=== PATIENT | female | born 1960 | race Caucasian/White ===

== ENCOUNTER 2019-12-22 15:30 | Emergency (ER) | payer OTHER, SELFPAY ==
--- NOTE | ~2019-12-22 | XR_ITS ---
EXAMINATION: XR shoulder LT min 2V INDICATION: Left shoulder pain TECHNIQUE: Three views of the left shoulder are obtained. COMPARISON: 01/24/2017 FINDINGS: There is an acute traumatic fracture of the left mid clavicle. The distal fracture fragment is inferiorly displaced and overriding by 2.1 cm. There is also a a chronic fracture of the distal c lavicle with nonunion. Alignment at the acromioclavicular and glenohumeral joints appears normal. IMPRESSION: 1. Acute overriding and displaced fracture of the left mid clavicle. 2. 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 Reviewed, dictated and finalized at location A.
[2019-12-22 15:46] VITALS: BP 124/71; PULSE 76; RESP 16; TEMP 36.6; O2SAT 96
--- NOTE | 2019-12-22 15:53 | ED.GENADULT ---
HPI - General Adult General Chief complaint: Extremity Injury, Upper Stated complaint: fall hit head left shoulder pain Time Seen by Provider: 12/22/19 15:53 Source: patient and RN notes reviewed Mode of arrival: ambulatory Limitations: no limitations History of Present Illness HPI narrative: 59-year-old female presents with complaints of left shoulder pain and swelling for approximately 1 hour ago. Jeane says she was pushing a flower cart down her driveway and hit a crack which flipped her over the cart and she landed on her LT side hitting her LT shoulder and side of head. She became loud and defensive when asked did she lose consciousness. She said I know I laid in my driveway and the neighbor says me and called my daughter. She continued to get loud and partially answering questions. She says she can recall the events. No treatment. Previous LT clavicle fracture. Denies numbness or tingling. Hurts with movement of shoulder. Denies radiating pain. No loss of mobility. Exacerbating factor is movement, palpation, and manipulation. Relieving factor is rest. The dominant hand is the RIGHT HAND. Remains active. Denies fever, chills, headaches, weakness, fatigue, myalgia. Denies chest pain or dyspnea. Denies cough, rhinorrhea, congestion, sore throat, nausea, vomiting, abdominal pain, and diarrhea. Tolerating po intake well. Denies recent traveling. Denies concerns for COVID-19 or exposures been home since [id number] order except for essential household needs and returned home. Some parts of this dictation were generated by voice recognition software and may contain typographical and/or grammatical inaccuracies. Related Data Home Medications Medication Instructions Recorded Confirmed alprazolam 12/22/19 Allergies Allergy/AdvReac Type Severity Reaction Status Date / Time No Known Allergies Allergy Unverified 09/02/19 12:47 Review of Systems Review of Systems: Narrative: CONSTITUTIONAL: Denies fever, chills, sweats. EYES: Denies visual changes, redness, discharge. ENT: Denies rhinorrhea, congestion, sore throat, otalgia. CARDIOVASCULAR: Denies chest pain, palpitations, edema. RESPIRATORY: Denies dyspnea, wheezing, cough. GASTROINTESTINAL: Denies abdominal pain, nausea, vomiting, diarrhea. GENITOURINARY: Denies dysuria, hematuria, abnormal discharge. SKIN: Denies rash or itching. MUSCULOSKELETAL: Denies acute back pain or myalgia. Complains of LT shoulder pain and swelling. NEUROLOGIC: Denies numbness or focal weakness. PSYCHIATRIC: Denies anxiety or depression. All other systems reviewed & are unremarkable except as noted in HPI and below. [facility] Past Medical History Medical History (Updated 12/22/19 @ 16:55 by JUAN Olson) History of broken collarbone Hypertension Menopause Surgical History Surgical History (Updated 12/22/19 @ 16:06 by JUAN Olson) History of hysterectomy Family History Family History Mother Family history of obesity Hypertension Family history of elevated blood lipids Family history of arthritis Family history of aortic aneurysm Father Patient's father is Family history of alcoholism Family history of malignant neoplasm of esophagus Social History Social History (Updated 12/22/19 @ 16:06 by JUAN Olson) Smoking packs per day: 1 Smoking cigarettes per day: 20.0 Years smoked: 60 Smoking pack-years: 60.00 Smoking status: Heavy tobacco smoker Second hand tobacco smoke exposure: Yes Alcohol intake: current Substance use: current Substance use type: marijuana Living arrangements: alone Gender identity (if verbalized by the patient): Female Comments At time of signature, agree with nurse past medical, surgical, social, and family history. There is no relevant family history pertinent to the presenting complaint. Jeane jay
== END 2019-12-22 17:13 | disposition home or self-care (01) ==
PROVIDERS: Emergency Provider Nurse Practitioner Family; PCP Internal Medicine
DX: S42.012A Anterior displaced fracture of sternal end of left clavicle, initial encounter for closed fracture (principal); S09.90XA Unspecified injury of head, initial encounter; I10 Essential (primary) hypertension; F17.210 Nicotine dependence, cigarettes, uncomplicated; W18.39XA Other fall on same level, initial encounter
CPT/HCPCS: 73030; 99204; G0463

== ENCOUNTER 2020-05-27 10:06 | Outpatient (CLI) | payer OTHER, SELFPAY ==
--- NOTE | ~2020-05-27 | CT_ITS ---
EXAMINATION: CT lung screening DATE: 05/27/2020 10:30 INDICATION: Personal history of tobacco dependence TECHNIQUE: Computed tomography (CT) of the chest was performed without intravenous contrast. The dose -length product was 86.27 mGy-cm. Automated exposure control and iterative reconstruction technique w ere employed. COMPARISON: CT dated 02/06/2019 FINDINGS: There is atherosclerosis of the aorta, great vessels and coronary arteries. Heart size is n ormal. Mildly elevated left diaphragm. No significant pleural or pericardial effusion. Stable 5 mm nodule in the right lower lobe, image 87. There is atelectasis/scarring of the left mid a nd lower lung. There are scattered groundglass opacities in the lower lobes. There is a 2 mm right up per lobe nodule. No new nodules or masses. IMPRESSION: 1. Lung-RADS category 2: Benign appearance or behavior. Continue annual screening with noncontrast lo w-dose chest CT in 12 months. 2: Patchy groundglass opacities predominantly affecting the lower lobes which may reflect atelectasi s, reactive airway disease or less likely developing pneumonia. Reviewed, dictated and finalized at location A. IMPRESSION: 1. Lung-RADS category 2: Benign appearance or behavior. Continue annual screeni ng with noncontrast low-dose chest CT in 12 months. 2: Patchy groundglass opacities predominantly affecting the lower lobes which may reflect atelectasis, reactive airway disease or less likely developing pneu monia.
--- NOTE | ~2020-05-27 | MM_ITS ---
EXAMINATION: MM screening demi BI w gavin HISTORY: Screening mammogram TECHNIQUE: Craniocaudal and mediolateral oblique 3-D tomosynthesis images were obtained and synthetic 2-D images were generated. CAD analysis was submitted and interpreted. COMPARISON: No prior mammogram is available for comparison at this institution. BREAST PARENCHYMAL COMPOSITION: There are scattered areas of fibroglandular density. FINDINGS: There is no evidence of suspicious mass, calcification, or architectural distortion to sugg est malignancy in either breast. There has been no suspicious interval change. IMPRESSION: 1. No mammographic evidence of malignancy. 2. Recommend routine screening mammography in one year. BI-RADS Category 1: Negative Reviewed, dictated and finalized at location A.
== END 2020-05-27 10:07 | disposition home or self-care (01) ==
PROVIDERS: PCP Internal Medicine; Visit Provider Internal Medicine
DX: Z12.2 Encounter for screening for malignant neoplasm of respiratory organs (principal); Z87.891 Personal history of nicotine dependence; Z12.31 Encounter for screening mammogram for malignant neoplasm of breast
CPT/HCPCS: 77063; 77067; G0297

== ENCOUNTER 2020-06-26 00:43 | Outpatient (CLI) | payer OTHER, SELFPAY ==
[2020-06-26 18:05] LABS: SARS-CoV-2 RNA PCR Negative
== END 2020-06-26 00:44 | disposition home or self-care (01) ==
LOC: ANHCOVIDDT 00:43
PROVIDERS: PCP Internal Medicine; Visit Provider Internal Medicine Gastroenterology
DX: Z01.812 Encounter for preprocedural laboratory examination (principal); Z20.828 Contact with and (suspected) exposure to other viral communicable diseases
CPT/HCPCS: 87635; C9803; U0003

== ENCOUNTER 2020-06-29 00:36 | Day surgery (SDC) | payer OTHER, SELFPAY ==
[2020-06-21 14:31] VITALS: BMI 25.6
[2020-06-29 10:29] VITALS: BP 114/66; PULSE 75; RESP 16; TEMP 37.1; O2SAT 94; BMI 25.0
[2020-06-29] MEDS: LACTATED RINGERS 1,000 ML 150 ML IV CONT (10:40)
--- NOTE | 2020-06-29 10:47 | WPDANESEPPF ---
Anes - Initial Pre Proc Eval Procedure: Operation Date: 06/29/20 11:45 Proposed Procedures p Screening Colonoscopy - Kris Scott MD Date/Time: 06/29/20 10:47 Surgeon: Kris Scott MD Pre Op Diagnosis: Neoplasm Screening Patient Data Age: 59 Gender: F Height: 5 ft 6 in Weight: 70.5 kg Last Vital Signs Temp 98.7 F 06/29/20 10:29 Pulse 75 06/29/20 10:29 Resp 16 06/29/20 10:29 BP 114/66 06/29/20 10:29 Pulse Ox 94 06/29/20 10:29 Allergies Allergy/AdvReac Type Severity Reaction Status Date / Time No Known Allergies Allergy Verified 06/29/20 10:28 Home Medications Medication Instructions Recorded Confirmed Type Bacillus coagulans 10 billion cell cell PO DAILY 07/23/19 12/25/19 History capsule,delayed release vitamin B complex 1 tablet PO DAILY 07/23/19 06/21/20 History alprazolam 0.25 mg tablet 0.25 mg PO DAILY PRN #30 tablet 04/27/20 06/21/20 Rx rosuvastatin 5 mg tablet 5 mg PO DAILY #90 tablet 05/05/20 06/21/20 Rx peg 3350-electrolytes 236 240 ml PO Q10M #4000 ml 05/25/20 06/21/20 Rx gram-22.74 gram-6.74 gram-5.86 gram solution lisinopril-hydrochlorothiazide 1 tablet PO DAILY 06/21/20 06/21/20 History Patient hx anesthesia problems: none Family hx anesthesia problems: none PMFSH Past Medical History Medical History (Updated 05/05/20 @ 09:32 by Franky Sanders MD) History of broken collarbone Hypertension Menopause Surgical History Surgical History History of hysterectomy Family History Family History Mother Family history of obesity Hypertension Family history of elevated blood lipids Family history of arthritis Family history of aortic aneurysm Father Patient's father is Family history of alcoholism Family history of malignant neoplasm of esophagus Mother Hypertension Father Family history of malignant neoplasm of esophagus Social History Social History Smoking packs per day: 1 Smoking cigarettes per day: 20.0 Years smoked: 60 Smoking pack-years: 60.00 Smoking status: Heavy tobacco smoker Tobacco type: cigarettes Second hand tobacco smoke exposure: Yes Alcohol intake: current Alcohol use details: rarely Substance use: current Substance use type: marijuana Other substance usage details: daily Living arrangements: alone Gender identity (if verbalized by the patient): Female Spiritual care concerns: No Anes - Eval Final PreProcedure Day of Procedure 06/29/20 10:47 Patient weight: normal Heart: regular rate and rhythm Lungs: clear to auscultation Airway: Mallampati scale class II Neurological: alert and oriented Last oral intake: >/= 8 hours ASA classification: III Emergent: no Anesthetic plan: proceed Anesthesia type and monitoring: general GIVS and standard monitoring Informed Consent: The patient's anesthetic plan and its attendant risks and benefits were discussed with the patient/family/POA. Questions were solicited and answers provided to the satisfaction of the patient/family/POA.
--- NOTE | 2020-06-29 10:49 | PM.HPGS ---
History of Present Illness History of Present Illness Consent: Risks, benefits, and alternatives have been discussed and questions answered. Patient agrees to proceed with procedure. Chief complaint: Neoplasm Screening Narrative: Jeane Muñiz is a 59 year old female here for first screening colonoscopy, no gi issues. Review of Systems Constitutional: Constitutional: Denies headache(s) and Denies weakness Eyes: Eyes: Denies blurry vision ENT: Reports Normal hearing present, Denies headache(s) and Denies neck pain Cardiovascular: Cardiovascular: Denies chest pain and Denies dyspnea Respiratory: Respiratory: Denies dyspnea Gastrointestinal: Gastrointestinal: Reports no additional gastrointestinal complaints Genitourinary: Genitourinary: Denies dysuria Musculoskeletal: Musculoskeletal: Denies neck pain Integumentary/Breasts: Skin/Breast: Denies dry skin Neurologic: Reports Normal hearing present, Denies headache(s) and Denies weakness Psychiatric: Psychiatric: Denies anxiety Endocrine: Endocrine: Denies change in body appearance Hematologic/Lymphatic: Hematologic/Lymphatic: Denies easy bleeding Allergic/Immunologic: Allergic/Immunologic: Denies urticaria PMFSH Past Medical History Medical History (Updated 05/05/20 @ 09:32 by Franky Snaders MD) History of broken collarbone Hypertension Menopause Surgical History Surgical History History of hysterectomy Family History Family History Mother Family history of obesity Hypertension Family history of elevated blood lipids Family history of arthritis Family history of aortic aneurysm Father Patient's father is Family history of alcoholism Family history of malignant neoplasm of esophagus Mother Hypertension Father Family history of malignant neoplasm of esophagus Social History Social History Smoking packs per day: 1 Smoking cigarettes per day: 20.0 Years smoked: 60 Smoking pack-years: 60.00 Smoking status: Heavy tobacco smoker Tobacco type: cigarettes Second hand tobacco smoke exposure: Yes Alcohol intake: current Alcohol use details: rarely Substance use: current Substance use type: marijuana Other substance usage details: daily Living arrangements: alone Gender identity (if verbalized by the patient): Female Spiritual care concerns: No Meds Home Medications and Allergies Home Medications Medication Instructions Recorded Confirmed Type Bacillus coagulans 10 billion cell cell PO DAILY 07/23/19 12/25/19 History capsule,delayed release vitamin B complex 1 tablet PO DAILY 07/23/19 06/21/20 History alprazolam 0.25 mg tablet 0.25 mg PO DAILY PRN #30 tablet 04/27/20 06/21/20 Rx rosuvastatin 5 mg tablet 5 mg PO DAILY #90 tablet 05/05/20 06/21/20 Rx peg 3350-electrolytes 236 240 ml PO Q10M #4000 ml 05/25/20 06/21/20 Rx gram-22.74 gram-6.74 gram-5.86 gram solution lisinopril-hydrochlorothiazide 1 tablet PO DAILY 06/21/20 06/21/20 History Allergies Allergy/AdvReac Type Severity Reaction Status Date / Time No Known Allergies Allergy Verified 06/29/20 10:28 Vital Signs Vital Signs - 24 hr 06/29/20 10:29 Temperature 98.7 F Pulse Rate 75 Respiratory Rate 16 Blood Pressure 114/66 Pulse Oximetry 94 Exam Const: General: comfortable and no acute distress HENMT: General nose exam: Normal nares present Eyes: General: appearance normal, both eyes and all related structures Neck: Neck: no JVD Resp: Auscultation: clear to auscultation bilaterally Cardio: Rate: regular rate Rhythm: regular rhythm GI: Inspection: non-distended GI Palp: Yes Soft to palpation Skin: General skin exam: normal color Neuro: General: gait normal Speech: normal speech Extrem: General: normal to inspection Psych:
[2020-06-29 11:11] VITALS: BP 116/64; PULSE 86; RESP 24; O2SAT 94
[2020-06-29 11:21] VITALS: BP 122/75; PULSE 79; RESP 22; O2SAT 94
[2020-06-29 11:31] VITALS: BP 110/67; PULSE 73; RESP 21; O2SAT 93
== END 2020-06-29 11:42 | disposition home or self-care (01) ==
PROVIDERS: PCP Internal Medicine; Visit Provider Internal Medicine Gastroenterology
PROC: 0DJD8ZZ Inspection of Lower Intestinal Tract, Via Natural or Artificial Opening Endoscopic (ICD-10-PCS; CPT 45378; principal; 2020-06-29 11:45)
DX: Z12.11 Encounter for screening for malignant neoplasm of colon (principal); K57.30 Diverticulosis of large intestine without perforation or abscess without bleeding; K62.1 Rectal polyp; K64.8 Other hemorrhoids; I10 Essential (primary) hypertension; F17.210 Nicotine dependence, cigarettes, uncomplicated; F12.90 Cannabis use, unspecified, uncomplicated
CPT/HCPCS: 45380; 88305; J2704; J7120

== ENCOUNTER → 2021-02-07 00:21 | Outpatient (CLI) | payer OTHER, SELFPAY ==
[2021-02-07 21:52] LABS: SARS-CoV-2 RNA PCR Negative
== END ==
PROVIDERS: PCP Internal Medicine; Visit Provider Internal Medicine Gastroenterology
DX: Z01.812 Encounter for preprocedural laboratory examination (principal); Z20.822 Contact with and (suspected) exposure to COVID-19
CPT/HCPCS: C9803; U0003; U0005

== ENCOUNTER 2021-02-10 02:35 | Day surgery (SDC) | payer OTHER, SELFPAY ==
[2021-02-03 09:31] VITALS: BMI 27.0
[2021-02-10 08:38] VITALS: BP 118/70; PULSE 77; RESP 20; TEMP 36.5; O2SAT 94
[2021-02-10] MEDS: LACTATED RINGERS 1,000 ML 30 ML IV CONT (08:46)
--- NOTE | 2021-02-10 09:08 | WPDANESEPPF ---
Anes - Initial Pre Proc Eval Procedure: Operation Date: 02/10/21 09:45 Proposed Procedures p Esophagogastroduodenoscopy - López Viera MD Date/Time: 02/10/21 09:08 Surgeon: López Viera MD Pre Op Diagnosis: dyphagia , nausea Patient Data Age: 60 Gender: F Height: 5 ft 6 in Weight: 74.4 kg Last Vital Signs Temp 97.7 F 02/10/21 08:38 Pulse 77 02/10/21 08:38 Resp 20 02/10/21 08:38 BP 118/70 02/10/21 08:38 Pulse Ox 94 02/10/21 08:38 Allergies Allergy/AdvReac Type Severity Reaction Status Date / Time No Known Allergies Allergy Verified 02/10/21 08:34 Home Medications Medication Instructions Recorded Confirmed Type alprazolam 0.25 mg PO PRN PRN 02/10/21 02/10/21 History lisinopril-hydrochlorothiazide 1 tablet PO DAILY 02/10/21 02/10/21 History Patient hx anesthesia problems: none Family hx anesthesia problems: none PMFSH Past Medical History Medical History History of broken collarbone Hypertension Menopause Surgical History Surgical History History of hysterectomy Family History Family History Mother Family history of obesity Hypertension Family history of elevated blood lipids Family history of arthritis Family history of aortic aneurysm Father Patient's father is Family history of alcoholism Family history of malignant neoplasm of esophagus Mother Hypertension Father Family history of malignant neoplasm of esophagus Social History Social History Smoking packs per day: 1 Smoking cigarettes per day: 20.0 Years smoked: 40 Smoking pack-years: 40.00 Smoking status: Current every day smoker Tobacco type: cigarettes Second hand tobacco smoke exposure: Yes Alcohol intake: current Drinks per week: 3 Substance use: current Substance use type: marijuana Other substance usage details: daily Living arrangements: alone Gender identity (if verbalized by the patient): Female Spiritual care concerns: No Anes - Eval Final PreProcedure Day of Procedure 02/10/21 09:08 Patient weight: overweight Heart: regular rate and rhythm Lungs: clear to auscultation Airway: Mallampati scale class II Neurological: alert and oriented Last oral intake: >/= 8 hours ASA classification: III Emergent: no Anesthetic plan: proceed Anesthesia type and monitoring: general GIVS and standard monitoring Informed Consent: The patient's anesthetic plan and its attendant risks and benefits were discussed with the patient/family/POA. Questions were solicited and answers provided to the satisfaction of the patient/family/POA.
--- NOTE | 2021-02-10 09:48 | PM.HPGS ---
History of Present Illness History of Present Illness Consent: Risks, benefits, and alternatives have been discussed and questions answered. Patient agrees to proceed with procedure. Chief complaint: dyphagia , nausea Narrative: Jeane Muñiz is a 60 year old female who has been suffering from dysphagia. Is primarily solid foods like beef that will seem to get stuck. At times it feels as though she has what she will call a lump in the throat as well. She is a chronic smoker has not been able to quit. Her father had carcinoma of the esophagus Review of Systems Review of Systems: All systems reviewed & are unremarkable except as noted in HPI and below PMFSH Past Medical History Medical History History of broken collarbone Hypertension Menopause Surgical History Surgical History History of hysterectomy Family History Family History Mother Family history of obesity Hypertension Family history of elevated blood lipids Family history of arthritis Family history of aortic aneurysm Father Patient's father is Family history of alcoholism Family history of malignant neoplasm of esophagus Mother Hypertension Father Family history of malignant neoplasm of esophagus Social History Social History Smoking packs per day: 1 Smoking cigarettes per day: 20.0 Years smoked: 40 Smoking pack-years: 40.00 Smoking status: Current every day smoker Tobacco type: cigarettes Second hand tobacco smoke exposure: Yes Alcohol intake: current Drinks per week: 3 Substance use: current Substance use type: marijuana Other substance usage details: daily Living arrangements: alone Gender identity (if verbalized by the patient): Female Spiritual care concerns: No Meds Home Medications and Allergies Home Medications Medication Instructions Recorded Confirmed Type alprazolam 0.25 mg PO PRN PRN 02/10/21 02/10/21 History lisinopril-hydrochlorothiazide 1 tablet PO DAILY 02/10/21 02/10/21 History Allergies Allergy/AdvReac Type Severity Reaction Status Date / Time No Known Allergies Allergy Verified 02/10/21 08:34 Vital Signs Vital Signs - 24 hr 02/10/21 08:38 Temperature 36.5 C Pulse Rate 77 Respiratory Rate 20 Blood Pressure 118/70 Pulse Oximetry 94 Exam Const: General: alert Orientation/consciousness: patient oriented x3 Resp: Auscultation: clear to auscultation bilaterally Cardio: Rhythm: regular rhythm GI: GI Palp: Yes Soft to palpation and No Tenderness to palpation present (GI) Neuro: General: patient oriented x3 Assessment and Plan Assessment and plan (1) Dysphagia: Qualifiers: Dysphagia type: unspecified Qualified Code(s): R13.10 - Dysphagia, unspecified Code(s): R13.10 - Dysphagia, unspecified Status: Acute Assessment and Plan: EGD with possible biopsy or dilatation or cautery.
[2021-02-10 10:07] VITALS: BP 123/67; PULSE 81; RESP 24; O2SAT 96
[2021-02-10 10:17] VITALS: BP 117/75; PULSE 70; RESP 19; O2SAT 93
[2021-02-10 10:27] VITALS: BP 118/72; PULSE 72; RESP 20; O2SAT 93
== END 2021-02-10 10:45 | disposition home or self-care (01) ==
PROVIDERS: PCP Internal Medicine; Visit Provider Internal Medicine Gastroenterology
PROC: 0DJ08ZZ Inspection of Upper Intestinal Tract, Via Natural or Artificial Opening Endoscopic (ICD-10-PCS; CPT 43235; principal; 2021-02-10 09:45)
DX: K22.2 Esophageal obstruction (principal); K21.00 Gastro-esophageal reflux disease with esophagitis, without bleeding; I10 Essential (primary) hypertension; F17.210 Nicotine dependence, cigarettes, uncomplicated
CPT/HCPCS: 43249; 88305; C1726; J2001; J2704; J7120

== ENCOUNTER → 2021-04-25 03:27 | Outpatient (CLI) | payer OTHER, SELFPAY ==
[2021-04-26 01:23] LABS: SARS-CoV-2 RNA PCR Negative
== END ==
PROVIDERS: PCP Internal Medicine; Visit Provider Internal Medicine Gastroenterology
DX: Z01.812 Encounter for preprocedural laboratory examination (principal); Z20.822 Contact with and (suspected) exposure to COVID-19
CPT/HCPCS: C9803; U0003; U0005

== ENCOUNTER 2021-04-28 01:49 | Day surgery (SDC) | payer OTHER, SELFPAY ==
[2021-04-20 13:41] VITALS: BMI 27.3
[2021-04-28 10:15] VITALS: BP 130/71; PULSE 70; RESP 18; TEMP 36.7; O2SAT 94; BMI 26.6
[2021-04-28] MEDS: LACTATED RINGERS 1,000 ML 150 ML IV CONT (10:26)
--- NOTE | 2021-04-28 10:49 | WPDANESEPPF ---
Anes - Initial Pre Proc Eval Procedure: Operation Date: 04/28/21 11:00 Proposed Procedures p Esophagogastroduodenoscopy - López Viera MD Date/Time: 04/28/21 10:49 Surgeon: López Viera MD Pre Op Diagnosis: esophageal stricture Patient Data Age: 60 Gender: F Height: 1.68 m Weight: 74.8 kg Last Vital Signs Temp 98.0 F 04/28/21 10:15 Pulse 70 04/28/21 10:15 Resp 18 04/28/21 10:15 BP 130/71 04/28/21 10:15 Pulse Ox 94 04/28/21 10:15 Allergies Allergy/AdvReac Type Severity Reaction Status Date / Time No Known Allergies Allergy Verified 04/20/21 13:40 Home Medications Medication Instructions Recorded Confirmed Type alprazolam 0.25 mg PO DAILY PRN 02/10/21 04/20/21 History lisinopril-hydrochlorothiazide 1 tablet PO DAILY 02/10/21 04/20/21 History omeprazole 40 mg PO DAILY #30 cap 02/10/21 04/20/21 Rx Allerplex 1 tablet PO DAILY 04/20/21 04/20/21 History Patient hx anesthesia problems: none Family hx anesthesia problems: none PMFSH Past Medical History Medical History History of broken collarbone Hypertension Menopause Surgical History Surgical History History of hysterectomy Family History Family History Mother Family history of obesity Hypertension Family history of elevated blood lipids Family history of arthritis Family history of aortic aneurysm Father Patient's father is Family history of alcoholism Family history of malignant neoplasm of esophagus Mother Hypertension Father Family history of malignant neoplasm of esophagus Social History Social History Smoking packs per day: 1 Smoking cigarettes per day: 20.0 Years smoked: 40 Smoking pack-years: 40.00 Smoking status: Current every day smoker Tobacco type: cigarettes Second hand tobacco smoke exposure: Yes Alcohol intake: current Drinks per week: 3 Alcohol use details: rarely Substance use: current Substance use type: marijuana Other substance usage details: 3X weekly Living arrangements: alone Gender identity (if verbalized by the patient): Female Spiritual care concerns: No Anes - Eval Final PreProcedure Day of Procedure 04/28/21 10:49 Patient weight: overweight Heart: regular rate and rhythm Lungs: clear to auscultation Airway: Mallampati scale class II Neurological: alert and oriented Last oral intake: >/= 8 hours ASA classification: III Emergent: no Anesthetic plan: proceed Anesthesia type and monitoring: general GIVS and standard monitoring Informed Consent: The patient's anesthetic plan and its attendant risks and benefits were discussed with the patient/family/POA. Questions were solicited and answers provided to the satisfaction of the patient/family/POA.
--- NOTE | 2021-04-28 11:07 | PM.HPGS ---
History of Present Illness History of Present Illness Consent: Risks, benefits, and alternatives have been discussed and questions answered. Patient agrees to proceed with procedure. Chief complaint: esophageal stricture Narrative: Jeane Muñiz is a 60 year old female with dysphagia. She was recently found to have a high-grade esophageal stricture. Returns now for further treatment Review of Systems Review of Systems: All systems reviewed & are unremarkable except as noted in HPI and below PMFSH Past Medical History Medical History History of broken collarbone Hypertension Menopause Surgical History Surgical History History of hysterectomy Family History Family History Mother Family history of obesity Hypertension Family history of elevated blood lipids Family history of arthritis Family history of aortic aneurysm Father Patient's father is Family history of alcoholism Family history of malignant neoplasm of esophagus Mother Hypertension Father Family history of malignant neoplasm of esophagus Social History Social History Smoking packs per day: 1 Smoking cigarettes per day: 20.0 Years smoked: 40 Smoking pack-years: 40.00 Smoking status: Current every day smoker Tobacco type: cigarettes Second hand tobacco smoke exposure: Yes Alcohol intake: current Drinks per week: 3 Alcohol use details: rarely Substance use: current Substance use type: marijuana Other substance usage details: 3X weekly Living arrangements: alone Gender identity (if verbalized by the patient): Female Spiritual care concerns: No Meds Home Medications and Allergies Home Medications Medication Instructions Recorded Confirmed Type alprazolam 0.25 mg PO DAILY PRN 02/10/21 04/20/21 History lisinopril-hydrochlorothiazide 1 tablet PO DAILY 02/10/21 04/20/21 History omeprazole 40 mg PO DAILY #30 cap 02/10/21 04/20/21 Rx Allerplex 1 tablet PO DAILY 04/20/21 04/20/21 History Allergies Allergy/AdvReac Type Severity Reaction Status Date / Time No Known Allergies Allergy Verified 04/20/21 13:40 Vital Signs Vital Signs - 24 hr 04/28/21 10:15 Temperature 36.7 C Pulse Rate 70 Respiratory Rate 18 Blood Pressure 130/71 Pulse Oximetry 94 Exam Const: General: alert Orientation/consciousness: patient oriented x3 Resp: Auscultation: clear to auscultation bilaterally Cardio: Rhythm: regular rhythm GI: GI Palp: Yes Soft to palpation and No Tenderness to palpation present (GI) Neuro: General: patient oriented x3 Assessment and Plan Assessment and plan (1) Dysphagia: Qualifiers: Dysphagia type: unspecified Qualified Code(s): R13.10 - Dysphagia, unspecified Code(s): R13.10 - Dysphagia, unspecified Status: Acute Assessment and Plan: EGD with possible biopsy or dilatation or cautery.
[2021-04-28 11:48] VITALS: BP 112/60; PULSE 54; RESP 26; O2SAT 94
[2021-04-28 11:58] VITALS: BP 110/59; PULSE 54; RESP 16; O2SAT 97
[2021-04-28 12:08] VITALS: BP 114/63; PULSE 60; RESP 22; O2SAT 98
== END 2021-04-28 12:17 | disposition home or self-care (01) ==
PROVIDERS: PCP Internal Medicine; Visit Provider Internal Medicine Gastroenterology
PROC: 0DJ08ZZ Inspection of Upper Intestinal Tract, Via Natural or Artificial Opening Endoscopic (ICD-10-PCS; CPT 43235; principal; 2021-04-28 11:00)
DX: K22.2 Esophageal obstruction (principal); R13.10 Dysphagia, unspecified; I10 Essential (primary) hypertension; Z90.710 Acquired absence of both cervix and uterus; F17.200 Nicotine dependence, unspecified, uncomplicated
CPT/HCPCS: 43249; J2001; J2704; J7120

== ENCOUNTER 2021-10-31 12:20 | Emergency (ER) | payer OTHER, SELFPAY ==
[2021-10-31] VITALS (7 sets, daily range): BP systolic 91–127; BP diastolic 61–80; PULSE 79–97; RESP 16–17; TEMP 36.3–36.6; O2SAT 92–95
--- NOTE | ~2021-10-31 | CT_ITS ---
EXAMINATION: CT abdomen pelvis w con DATE: 10/31/2021 13:50 INDICATION: Abdomen pain. Possible food poisoning. TECHNIQUE: Computed tomography (CT) of the abdomen and pelvis was performed without intravenous contr ast. The dose-length product was 334.36 mGy-cm. Automated exposure control and iterative reconstructi on technique were employed. . COMPARISON: None. FINDINGS: The liver, spleen, pancreas, right adrenal gland is unremarkable. There is nodular thickeni ng of the left adrenal gland, likely adrenal hyperplasia or benign adenomatous change. There are low- density lesions in both kidneys, likely benign cysts. Colonic diverticulosis without evidence for div erticulitis. There is atherosclerosis of the aorta without aneurysm. No free air or free fluid. No ev idence for bowel obstruction. Mild lower lumbar spondylosis. IMPRESSION: 1. No acute abdominal abnormality. Reviewed, dictated and finalized at location A. INSPECTOR
[2021-10-31] MEDS: SODIUM CHLORIDE 0.9% IV 1,000 ML 1000 ML (12:39)
--- NOTE | 2021-10-31 12:40 | PC.NURSE ---
FLUIDS INITIATED, BP 86/53, MUCOUS MEMBRANES APPEAR STICKY AND DRY AND PT REPORTS NOT VOIDING VERY MUCH OVER LAST 24 HRS
[2021-10-31 12:42] LABS: Basophils Absolute Auto 0.1 K/mm3 (0.0-0.1); Basophils Percent Auto 0.4 % (0.2-1.2); Eosinophils Percent Auto 0.2 % (0-4.4); Hematocrit 54.7 % (37.0-47.0); Hemoglobin 19.1 g/dL (12.0-15.0); Immature Granulocyte Absolute 0.06 K/mm3 (0.00-0.031); Immature Granulocyte Percent A 0.4 % (0-0.5); Lymphocytes Percent Auto 21.5 % (18.3-44.2); Mean Corpuscular HGB Conc 34.9 g/dl (32-36); Mean Corpuscular Hemoglobin 30.5 pg (26-34); Mean Corpuscular Volume 87.2 fl (80-100); Mean Platelet Volume 10.5 fl (7.4-10.4); Monocytes Absolute Auto 1.8 K/mm3 (0.1-0.6); Monocytes Percent Auto 11.3 % (2.6-8.5); Neutrophils Absolute Auto 10.5 K/mm3 (1.3-6.7); Neutrophils Percent Auto 66.2 % (45.5-73.1); Platelet Count Result 245 k/mm3 (150-375); Red Blood Count 6.27 M/mm3 (4.2-5.4); Red Cell Distribution Width 11.6 % (11.5-14.5); White Blood Count 15.8 K/mm3 (4.5-10.0)
[2021-10-31 12:52] LABS: Alanine Aminotransferase 25 U/L (4-35); Albumin Level 4.5 g/dL (3.5-5.1); Alkaline Phosphatase 89 U/L (38-126); Anion Gap 12 mmol/L (8-16); Aspartate Amino Transferase 33 U/L (14-36); Bilirubin,Total 1.4 mg/dL (0.2-1.3); Blood Urea Nitrogen 21 mg/dL (7-17); Calcium 9.9 mg/dL (8.4-10.2); Carbon Dioxide 26 mmol/L (22-30); Chloride 89 mmol/L (98-107); Estimated CRCL calculation 60 ml/min; Estimated Glomerular Filt Rate > 60; Glucose 115 mg/dL (65-110); Lipase 450 U/L (23-300); Potassium 3.5 mmol/L (3.4-5.0); Sodium 127 mmol/L (137-145)
[2021-10-31] MEDS: ONDANSETRON INJ 4 MG/2 ML VIAL 8 MG IV PUSH (13:24)
[2021-10-31] MEDS: SODIUM CHLORIDE 0.9% IV 2,000 ML 999 ML IV CONT (13:25)
[2021-10-31 13:30] LABS: Add Urine Microscopic? YES; Appearance Urine Clear (Clear); Bilirubin Urine Negative (Negative); Blood Urine 1+ (Negative); Color Urine Colorless (Yellow); Glucose Urine UA Negative (Negative); Ketones Urine Trace mg/dL (Negative); Leukocyte Esterase Ur Negative LEU/UL (Negative); Nitrate Urine Negative (Negative); Protein Urine Negative (Negative); RBC Urine 0-2 /hpf (0-2); Squamous Epithelial Cell Urine Rare /hpf (Few); Urobilinogen Urine Negative mg/dL (<2.0); WBC Urine 0-3 /hpf
[2021-10-31 13:39] LABS: Specific Grav Ur 1.002 (1.001-1.035)
--- NOTE | 2021-10-31 14:55 | ED.NAVMDI ---
HPI - Nausea/Vomiting/Diarrhea General Chief complaint: Nausea/Vomiting/Diarrhea Stated complaint: n/v/d 3 days Time Seen by Provider: 10/31/21 13:11 Source: patient and RN notes reviewed Mode of arrival: ambulatory Limitations: no limitations History of Present Illness HPI Narrative: Patient is 61 years old white female presented to the ED with nausea, vomiting and diarrhea with abdominal cramps that started 4 days ago patient is telling me that then been vomiting 100s of times a day, diarrhea 100s of times a day. Patient lives alone, ate fresh eggs few hours prior to the beginning of the symptoms. Patient tested negative for Covid twice over the last 4 days. Patient denies any fever, chills, chest pain, shortness of breath, headache. Also denies sick contact Related Data Home Medications Medication Instructions Recorded Confirmed alprazolam 0.25 mg PO DAILY PRN 02/10/21 04/20/21 Allerplex 1 tablet PO DAILY 04/20/21 04/20/21 Allergies Allergy/AdvReac Type Severity Reaction Status Date / Time No Known Allergies Allergy Verified 10/31/21 12:31 Review of Systems Review of Systems: CONSTITUTIONAL: Denies fever, chills, or sweats. EYES: Denies visual changes, redness, or discharge. ENT: Denies rhinorrhea, congestion, sore throat, or otalgia. CARDIOVASCULAR: Denies chest pain, palpitations, or edema. RESPIRATORY: Denies cough or dyspnea. GASTROINTESTINAL: Denies abdominal pain, nausea, vomiting, or diarrhea. GENITOURINARY: Denies dysuria or hematuria. SKIN: Denies rash or itching. MUSCULOSKELETAL: Denies back pain, joint pain, or myalgia. NEUROLOGIC: Denies headache, numbness, or weakness. PSYCHIATRIC: Denies anxiety or depression. FOR[facility]LY [facility], [facility] Past Medical History Medical History (Updated 10/31/21 @ 15:51 by Stanton Williamson MD) History of broken collarbone Hypertension Menopause Surgical History Surgical History History of hysterectomy Family History Family History Mother Family history of obesity Hypertension Family history of elevated blood lipids Family history of arthritis Family history of aortic aneurysm Father Patient's father is Family history of alcoholism Family history of malignant neoplasm of esophagus Mother Hypertension Father Family history of malignant neoplasm of esophagus Social History Social History Smoking packs per day: 1 Smoking cigarettes per day: 20.0 Years smoked: 40 Smoking pack-years: 40.00 Smoking status: Current every day smoker Tobacco type: cigarettes Second hand tobacco smoke exposure: Yes Alcohol intake: current Drinks per week: 3 Alcohol use details: rarely Substance use: current Substance use type: marijuana Other substance usage details: 3X weekly Gender identity (if verbalized by the patient): Female Spiritual care concerns: No Exam Narrative: General appearance: Well-developed, well-nourished, ill looking Skin: Normal color Head: Normocephalic, nontraumatic Eyes: Clear conjunctiva ENT: Oropharynx normal, ears normal, nose normal Neck: Supple, nontender Chest and respiratory: Airway patent, no respiratory distress, no accessory muscle use Heart: Regular rate/rhythm Abdomen: Soft, nontender, no organomegaly, quiet bowel sounds Vascular: Normal peripheral pulses, normal capillary refill. Musculoskeletal: Normal range of motion, nontender back Neurologic: Alert and oriented ?3, DEVICE ENGINEER is normal as tested, no gross motor deficit Course Course Emergency Course: Stable, improving Reev
== END 2021-10-31 16:10 | disposition home or self-care (01) ==
PROVIDERS: Emergency Provider Emergency Medicine; PCP Internal Medicine
DX: K52.9 Noninfective gastroenteritis and colitis, unspecified (principal); I10 Essential (primary) hypertension; F17.210 Nicotine dependence, cigarettes, uncomplicated
CPT/HCPCS: 36415; 74177; 80053; 81001; 83690; 85025; 96361; 96374; 99284; J2405; J7030; Q9967

== ENCOUNTER 2022-10-20 16:55 | Emergency (ER) | payer OTHER, SELFPAY ==
[2022-10-20 16:59] VITALS: BP 115/59; PULSE 85; RESP 16; TEMP 36.8; O2SAT 93
--- NOTE | 2022-10-20 17:18 | ED.EXTPRO ---
HPI - Extremity Problem General Chief complaint: Extremity Problem,Nontraumatic <Rakesh Cloud PA-C - Last Filed: 10/20/22 17:42> Stated complaint: finger infection <FREDI Abebe Last Filed: 10/20/22 17:42> Time Seen by Provider: 10/20/22 17:08 <Rakesh Cloud PA-C - Last Filed: 10/20/22 17:42> History of Present Illness HPI Narrative: This is a 62-year-old female who presents for chief complaint of right ring finger pain and swelling onset x1 week. Patient states that she bit a hangnail off and has had increasing swelling and pain ever since. Notes that the finger has been red. Denies any fevers or chills or night sweats. She is a smoker and smokes about 1 pack/day but is trying to cut back. Denies chest pain, shortness of breath cough, urinary symptoms. Denies numbness tingling or weakness of the extremities. <FREDI Abebe Last Filed: 10/20/22 17:42> Related Data Home medications: Home Medications Medication Instructions Recorded Confirmed alprazolam 0.25 mg tablet 0.25 mg PO DAILY PRN Anxiety 02/10/21 04/20/21 Allerplex 1 tablet PO DAILY 04/20/21 04/20/21 <Rakesh Cloud PA-C - Last Filed: 10/20/22 17:42> Allergies/Adverse reactions: Allergies Allergy/AdvReac Type Severity Reaction Status Date / Time No Known Allergies Allergy Verified 10/20/22 17:35 <FREDI Abebe Last Filed: 10/20/22 17:42> Review of Systems Review of Systems: CONSTITUTIONAL: Denies fever, chills, or sweats. EYES: Denies visual changes, redness, or discharge. ENT: Denies rhinorrhea, congestion, sore throat, or otalgia. CARDIOVASCULAR: Denies chest pain, palpitations, or edema. RESPIRATORY: Denies cough or dyspnea. GASTROINTESTINAL: Denies abdominal pain, nausea, vomiting, or diarrhea. GENITOURINARY: Denies dysuria or hematuria. SKIN: Endorses redness and swelling of right ring finger. Denies rash or itching. MUSCULOSKELETAL: Denies back pain, joint pain, or myalgia. Pain at the tip of the ring finger on the right hand. NEUROLOGIC: Denies headache, numbness, dizziness, or weakness. PSYCHIATRIC: Denies anxiety or depression. <Rakesh Cloud PA-C - Last Filed: 10/20/22 17:42> PMFSH Past Medical History Medical History: Medical History (Updated 10/20/22 @ 17:33 by Rakesh Cloud PA-C) History of broken collarbone Hypertension Menopause <Rakesh Cloud PA-C - Last Filed: 10/20/22 17:42> Surgical History Surgical History: Surgical History (System 03/02/22 @ 13:48 by Madalyn Cain) History of hysterectomy <Rakesh Cloud PA-C - Last Filed: 10/20/22 17:42> Family History Family History: Family History (System 03/02/22 @ 13:48 by Madalyn Cain) Mother Family history of obesity Hypertension Family history of elevated blood lipids Family history of arthritis Family history of aortic aneurysm Father Patient's father is Family history of alcoholism Family history of malignant neoplasm of esophagus Mother Hypertension Father Family history of malignant neoplasm of esophagus <Rakesh Cloud PA-C - Last Filed: 10/20/22 17:42> Social History Social History: Social History (System 03/02/22 @ 13:48 by Madalyn Cain) Smoking packs per day: 1 Smoking cigarettes per day: 20.0 Years smoked: 40 Smoking pack-years: 40.00 Smoking status: Current every day smoker Tobacco type: cigarettes Second hand tobacco smoke exposure: Yes Alcohol intake: current Drinks per week: 3 Alcohol use details: rarely Substance use: current Substance use type: marijuana Other substance usage details: 3X weekly Living arrangements: alone Gender identity (if verbalized by the patient): Female Spiritual care concerns: No <Rakesh Cloud PA-C - Last Filed: 10/20/22 17:42> Exam Narrative: GENERAL: Well-appearing, well-nourished, and in no acute distress. HEAD: Normocephalic, atraumatic. EYES: PERRLA and EOMI.
== END 2022-10-20 17:49 | disposition home or self-care (01) ==
LOC: ANHED 17:41
PROVIDERS: Emergency Provider Physician Assistant
DX: L03.011 Cellulitis of right finger (principal); I10 Essential (primary) hypertension; Z90.710 Acquired absence of both cervix and uterus; F17.210 Nicotine dependence, cigarettes, uncomplicated
CPT/HCPCS: 10060; 26010; 99283